=== PATIENT | male | born 1930 | race Caucasian/White ===

== ENCOUNTER 2017-02-05 11:49 | Emergency (ER) | payer MEDICARE ==
--- NOTE | 2017-02-05 14:43 | RAD ---
PELVIC RADIOGRAPH: Date: 02/05/17 PROVIDED CLINICAL HISTORY: Pelvic pain status post injury. FINDINGS: Surgical clips overlie the pelvis. Vascular calcifications are seen. There is no evidence for fractur e or other acute osseous abnormality. If there is persistent clinical concern, conservative managemen t and follow-up imaging are advised. IMPRESSION: As above. POS: [facility]
--- NOTE | 2017-02-05 14:44 | RAD ---
LEFT FEMUR 2 VIEWS: Date: 02/05/17 PROVIDED CLINICAL HISTORY: Left leg pain status post injury. FINDINGS: There is no evidence for fracture or other acute osseous abnormality. If there is persistent clinical concern, conservative management and follow-up imaging are advised. IMPRESSION: As above. POS: [facility]
[2017-02-05 14:55] LABS: #Lymphocytes 0.7 thou/uL (1.20-3.40); #Monocytes 0.8 thou/uL (0.11-0.59); #Neutrophils 5.8 thou/uL (1.40-6.50); %Eosinophils 0.6 % (0.0-10.0); %Lymphocytes 8.9 % (21.0-51.0); %Monocytes 10.7 % (0.0-10.0); Hematocrit 38.3 % (42.0-52.0); Mean Platelet Volume 6.8 fL (7.4-10.4); Red Blood Cell (RBC) Count 3.74 mill/uL (4.70-6.10); White Blood Cell (WBC) Count 7.3 thou/uL (4.8-10.8)
[2017-02-05 15:17] LABS: Bilirubin Negative (Negative); Blood, Urine Large (Negative); Glucose, Urine (Dipstick) Negative (Negative); Ketone, Urine Trace mg/dL (Negative); Nitrite Negative (Negative); Protein, Urine (Dipstick) Negative (Neg-Trace); Urobilinogen 0.2 mg/dL (0.2-1.0)
[2017-02-05 15:18] LABS: ALT (SGPT) 15 U/L (8-55); AST (SGOT) 27 U/L (5-34); Alkaline Phosphatase 132 U/L (40-150); Anion Gap 12 mmol/L (10-20); BUN (Urea Nitrogen) 13 mg/dL (8.4-25.7); Bilirubin, Total 0.9 mg/dL (0.2-1.2); Calc. Creatinine Clearance 0 mL/min (70-130); Calcium 9.6 mg/dL (7.8-10.44); Carbon Dioxide 28 mmol/L (23-31); Chloride 106 mmol/L (98-107); Estimated GFR-MDRD 89; Globulin 2.7 g/dL (2.4-3.5); Protein, Total 6.7 g/dL (5.8-8.1)
[2017-02-05 15:22] LABS: Bacteria/HPF None Seen HPF (None Seen); Hyaline Casts/LPF 0-3 HYALINE CAST LPF (0-3 Hyaline); RBC/HPF GREATER THAN 50-TNTC HPF (0-3); Squamous Epithelial None Seen HPF (0-3); WBC/HPF 0-3 HPF (0-3)
[2017-02-05] MEDS ORDERED: Ibuprofen 200 MG TAB ONE (16:13)
== END 2017-02-05 13:39 | disposition home or self-care (01) ==
LOC: ERS 11:49
DX: S70.12XA Contusion of left thigh, initial encounter (principal); G62.9 Polyneuropathy, unspecified; J44.9 Chronic obstructive pulmonary disease, unspecified; F03.90 Unspecified dementia, unspecified severity, without behavioral disturbance, psychotic disturbance, mood disturbance, and anxiety; Z87.891 Personal history of nicotine dependence; Z79.82 Long term (current) use of aspirin; Z79.01 Long term (current) use of anticoagulants; Z79.899 Other long term (current) drug therapy; X58.XXXA Exposure to other specified factors, initial encounter
CPT/HCPCS: 36415; 72170; 80053; 81003; 81015; 85025; 93005

== ENCOUNTER 2017-02-05 23:10 | Observation (INO) | payer MEDICARE, OTHER ==
--- NOTE | 2017-02-06 01:27 | PDOC.EVN ---
Event Note - Event Note Event Note: [id number] H&P Dictated 1. Agitation 2. Dementia 3. CAD 4. HTN Plan: see orders
[2017-02-06] MEDS ORDERED: Acetaminophen 325 MG TAB PO PRN (01:57)
[2017-02-06] MEDS ORDERED: HYDROcodone/Acetaminophen 5/325 mg Tablet PO PRN (01:57)
[2017-02-06] MEDS ORDERED: Ondansetron HCl/PF 4 MG/2 ML Vial IVP PRN (01:57)
[2017-02-06 02:37] VITALS: BMI 21.2
[2017-02-06 02:56] LABS: #Lymphocytes 0.6 thou/uL (1.20-3.40); #Monocytes 0.8 thou/uL (0.11-0.59); #Neutrophils 6.5 thou/uL (1.40-6.50); %Basophils 0.2 % (0.0-1.0); %Eosinophils 0.4 % (0.0-10.0); %Lymphocytes 7.9 % (21.0-51.0); %Monocytes 10.6 % (0.0-10.0); Mean Platelet Volume 6.9 fL (7.4-10.4); Red Blood Cell (RBC) Count 3.59 mill/uL (4.70-6.10)
[2017-02-06 03:42] LABS: Anion Gap 13 mmol/L (10-20); BUN (Urea Nitrogen) 13 mg/dL (8.4-25.7); Calc. Creatinine Clearance 66 mL/min (70-130); Calcium 9.2 mg/dL (7.8-10.44); Carbon Dioxide 28 mmol/L (23-31); Chloride 106 mmol/L (98-107); Estimated GFR-MDRD 81
--- NOTE | 2017-02-06 08:06 | CT ---
PRELIMINARY REPORT/[facility]/EMERGENCY AFTER HOURS PROCEDURE: EXAM: CT Head Without Intravenous Contrast EXAM DATE/TIME: Exam ordered 02/06/2017 1:17 AM CLINICAL HISTORY: 86 years old, male; Signs and symptoms; Altered mental status/memory loss; Confusion or disorientatio n; Patient HX: M86 presents to ed via ems, called for bedsores on bottom. Per ems, pt was in ed earli er today for bruise on inner l thigh from fall. Pt has a HX of dementia. Pt reports there was a disag reement with him and his and he was sent here. Pt denies pain anywhere. Pt does not remember vis it to ed earlier today. TECHNIQUE: Axial computed tomography images of the head/brain without intravenous contrast. COMPARISON: No relevant prior studies available. FINDINGS: Brain: Volume loss and chronic small vessel ischemic change. No hemorrhage. Ventricles: Unremarkable. No ventriculomegaly. Bones/joints: Unremarkable. No acute fracture. Soft tissues: Unremarkable. Sinuses: Unremarkable as visualized. No acute sinusitis. Mastoid air cells: Unremarkable as visualized. No mastoid effusion. IMPRESSION: No acute brain findings. Thank you for allowing us to participate in the care of your patient. Dictated and Authenticated by: Wenceslao Wiley MD 02/06/2017 1:24 AM Central Time ([place] & [place]) FINAL REPORT BRAIN CT WITHOUT IV CONTRAST: EMERGENT AFTER HOURS TIME: 1:18 a.m. DATE: 02/06/17. Stable atrophy and chronic white matter ischemic changes. No mass or bleed. POS: [facility]
--- NOTE | 2017-02-06 08:50 | HP ---
DATE OF ADMISSION: 02/06/2017 CHIEF COMPLAINT: Agitation. HISTORY OF PRESENT ILLNESS: Patient is 86-year-old male with past medical history of dementia, coronary artery disease, history of lung CA removed, prostate CA, COPD with intermittent oxygen and was brought to the ER because of falls and agitation. Patient had a fall earlier also and patient has some left thigh bruising according to the daughter, patient lives at home with his , but the was admitted in rehab. Following the hip surgery, the patient's started is living with the father at home. According to the daughter, patient is having worsening agitation and confusion last few days, mental status got worse today and the patient brought to the ER. Denies any chest pain. Denies any trouble breathing, denies any dizziness, denies any lightheadedness. PAST MEDICAL HISTORY: As per HPI. PAST SURGICAL HISTORY: CABG. FAMILY HISTORY: Positive for heart problems. SOCIAL HISTORY: No smoking, no alcohol, no drugs. MEDICATIONS: Reviewed. REVIEW OF SYSTEMS: Constitutional: Denies any fever, denies any chills. Eyes : Denies any vision problems. Ears: Denies any hearing loss. Neck: Denies any neck pain. Cardiovascular: Denies any chest pain. Respiratory system: Denies any cough, denies sputum production. Gastrointestinal: Denies nausea, denies vomiting. Integumentary: Positive for left thigh ecchymosis. Cranial nerve system: Denies syncope. Positive for fall. Psychiatric: Positive for agitation. All other review of systems are reviewed and are negative. PHYSICAL EXAMINATION: VITAL SIGNS: Blood pressure is 110/70, afebrile, pulse 85. GENERAL: This patient appears comfortable. HEENT: Pupils are equal, round, and reactive. Anterior nares patent. CARDIOVASCULAR: S1, S2 present. Irregular rate and rhythm. No murmurs, no rubs, no gallops. RESPIRATORY SYSTEM: No wheezing, no rhonchi. Breath sounds bilaterally. GASTROINTESTINAL: Abdomen is soft, nontender, no guarding, no organomegaly, no masses felt. MUSCULOSKELETAL: Left thigh positive for ecchymosis. INTEGUMENTARY: Positive for left thigh ecchymosis. NEUROLOGIC: Cranial nerves intact. Speech clear. Oriented to place and person , but not to time, follows all commands. PSYCHIATRIC: Mood calm at this time. LABORATORY DATA: At the time of H&P performed showed white count of 7.3, hemoglobin 12.7, platelet count is 231. BMP: Sodium 142, potassium 3.7, chloride 106, CO2 is 28, BUN of 13, creatinine 0.82. ASSESSMENT AND PLAN: The patient is an 86-year-old male: 1. History of dementia plus agitation. Plan to monitor the patient closely. Plan to do CT head to evaluate other etiology. We will admit patient to tele overnight. 2. History of hypertension. Continue home blood pressure meds. 3. History of coronary artery disease. Continue aspirin. 4. History of chronic obstructive pulmonary disease. Continue breathing treatments. Monitor oxygen status closely. Case was discussed in detail with the patient and patient's daughter also. LEXIE
[2017-02-06] MEDS ORDERED: Heparin 5,000 UNITS/ML VIAL SC SCH (09:00)
[2017-02-06] MEDS ORDERED: Enoxaparin Sodium 30 MG/0.3 ML SYRINGE SC SCH (09:00)
[2017-02-06] MEDS: Famotidine 20 MG TAB PO SCH ×2 (09:00→20:02)
--- NOTE | 2017-02-06 10:00 | PDOC.PN ---
- Subjective Encounter Start Date: 02/06/17 Encounter Start Time: 09:58 Mr. Farrell was seen today in follow-up for advanced dementia. He was resting comfortably in bed. I spoke to a long time friend of the patient who is very concerned about the patient's living situation. - Objective MAR Reviewed: Yes Vital Signs & Weight: Vital Signs (12 hours) Temp Pulse Resp BP BP Pulse Ox 02/06/17 08:00 98.1 F 63 18 171/84 H 94 L 02/06/17 01:58 98.0 F 63 18 170/74 H 94 L 02/06/17 01:30 98.0 F 63 18 94 L Weight Weight 169 lb 15.622 oz I&O: 02/05/17 02/06/17 02/07/17 06:59 06:59 06:59 Intake Total 0 Balance 0 Result Diagrams: 02/06/17 02:49 02/06/17 02:49 Phys Exam - Physical Examination HEENT: PERRLA Respiratory: no wheezing, no rales, no rhonchi Cardiovascular: RRR, no significant murmur, no rub Gastrointestinal: soft, non-tender, positive bowel sounds Musculoskeletal: no edema Dx/Plan (1) Dementia Code(s): F03.90 - UNSPECIFIED DEMENTIA WITHOUT BEHAVIORAL DISTURBANCE Status: Acute (2) COPD (chronic obstructive pulmonary disease) Status: Chronic (3) CAD (coronary artery disease) Code(s): I25.10 - ATHSCL HEART DISEASE OF [place] CORONARY ARTERY W/O ANG PCTRS Status: Chronic (4) Hypertension Code(s): I10 - ESSENTIAL (PRIMARY) HYPERTENSION Status: Chronic - Plan * Dementia- patient's condition has worsened to the point where he can no longer safely be cared for at home. * COPD- stable * CAD- stable * HTN- blood pressure is slightly elevated- will add Hydralazine as needed * Case Management has been consulted for placement
[2017-02-06] MEDS ORDERED: hydrALAZINE 20 MG/ML VIAL SLOW IVP PRN (10:08)
[2017-02-06] MEDS ORDERED: Lorazepam 2 MG/ML VIAL SLOW IVP PRN (10:09)
[2017-02-06] MEDS: Levothyroxine Sodium 100 MCG TAB PO SCH (20:02)
[2017-02-06] MEDS ORDERED: Atorvastatin Calcium 10 MG TAB PO SCH (21:00)
[2017-02-07] MEDS ORDERED: Ondansetron ODT 4 MG TAB PO PRN (08:58)
[2017-02-07] MEDS ORDERED: Non-Formulary Item 1 EACH (Apixaban [Eliquis] 2.5 MG) PO SCH (09:00)
[2017-02-07] MEDS ORDERED: FLUTAMIDE PO SCH (09:00)
[2017-02-07] MEDS ORDERED: Apixaban 5 MG TAB PO SCH ×2 (09:00)
[2017-02-07] MEDS ORDERED: Venlafaxine HCl XR 150 MG CAP PO SCH (09:00)
[2017-02-07 09:02] VITALS: TEMP 98
[2017-02-07] MEDS: Famotidine 20 MG TAB PO SCH (09:58)
--- NOTE | 2017-02-07 13:38 | PDOC.PN ---
- Subjective Encounter Start Date: 02/07/17 Encounter Start Time: 11:00 Patient seen and examined. No new complaints. No overnight events - Objective MAR Reviewed: Yes Vital Signs & Weight: Vital Signs (12 hours) Temp Pulse Resp BP Pulse Ox 02/07/17 12:29 98 F 63 18 149/89 H 93 L 02/07/17 08:35 98 F 57 L 16 183/71 H 97 02/07/17 08:00 98 F 57 L 16 02/07/17 04:00 98.3 F 51 L 18 168/68 H 96 Weight Admit Weight 169 lb 15.616 oz Weight 169 lb 15.616 oz I&O: 02/06/17 02/07/17 02/08/17 06:59 06:59 06:59 Intake Total 120 Balance 120 Result Diagrams: 02/06/17 02:49 02/06/17 02:49 Phys Exam - Physical Examination Constitutional: NAD HEENT: PERRLA, moist MMs, sclera anicteric Neck: no JVD, supple Respiratory: no wheezing, no rales, no rhonchi Cardiovascular: RRR, no significant murmur, no rub Gastrointestinal: soft, non-tender, no distention, positive bowel sounds Musculoskeletal: no edema, pulses present Neurological: non-focal, normal sensation Psychiatric: normal affect, A&O x 3 Skin: no rash, normal turgor Dx/Plan (1) Dementia Code(s): F03.90 - UNSPECIFIED DEMENTIA WITHOUT BEHAVIORAL DISTURBANCE Status: Acute (2) CAD (coronary artery disease) Code(s): I25.10 - ATHSCL HEART DISEASE OF [place] CORONARY ARTERY W/O ANG PCTRS Status: Chronic (3) COPD (chronic obstructive pulmonary disease) Status: Chronic (4) Hypertension Code(s): I10 - ESSENTIAL (PRIMARY) HYPERTENSION Status: Chronic - Plan cont current plan of care, plan discussed w/ family, PT/OT, pediatric social worker * medically stable * only needs placement * will discharge * medication reviewed as below * symptomatic treatment. Review of Systems - Review of Systems Other: unable to review due to dementia - Medications/Allergies Allergies/Adverse Reactions: Allergies Allergy/AdvReac Type Severity Reaction Status Date / Time No Known Drug Allergies Allergy Verified 02/06/17 03:46 Medications: Current Medications Acetaminophen (Tylenol) 650 mg PO Q4H PRN PRN Reason: Headache/Fever or Pain Hydrocodone Bitart/Acetaminophen ([place] 5/325) 1 tab PO Q4H PRN PRN Reason: Moderate Pain (4-6) Albuterol/Ipratropium (Duoneb) 3 ml IPPB Q4H PRN PRN Reason: Wheezing Apixaban (Eliquis) 5 mg PO BID [facility] Last Admin: 02/07/17 10:01 Dose: 5 mg Arformoterol Tartrate (Brovana) 15 mcg NEB BID-RT [facility] Atorvastatin Calcium (Lipitor) 10 mg PO HS [facility] Last Admin: 02/06/17 20:02 Dose: 10 mg Duloxetine HCl (Cymbalta) 20 mg PO DAILY [facility] Last Admin: 02/07/17 09:58 Dose: 20 mg Famotidine (Pepcid) 20 mg PO BID [facility] Last Admin: 02/07/17 09:58 Dose: 20 mg Hydralazine HCl (Apresoline) 10 mg SLOW IVP Q4H PRN PRN Reason: Systolic BP > 180 Levothyroxine Sodium (Synthroid) 100 mcg PO BID [facility] Last Admin: 02/06/17 20:02 Dose: 100 mcg Levothyroxine Sodium (Synthroid) 25 mcg PO 0600 [facility] Lorazepam (Ativan) 0.5 mg SLOW IVP Q4H PRN PRN Reason: Anxiety/Agitation Ondansetron HCl (Zofran) 4 mg IVP Q6H PRN PRN Reason: Nausea/Vomiting Ondansetron HCl (Zofran Odt) 4 mg PO Q6H PRN PRN Reason: Nausea/Vomiting [Flutamide] 250 Mg (Cap) 0 each PO DAILY [facility] Quetiapine Fumarate (Seroquel) 25 mg PO HS [facility] Sodium Chloride (Flush - Normal Saline) 10 ml IVF PRN PRN PRN Reason: Saline Flush Trazodone HCl (Desyrel) 25 mg PO HS [facility] Venlafaxine HCl (Effexor Xr) 150 mg PO DAILY [facility]
[2017-02-07 14:32] VITALS: BP 172/76
[2017-02-07] MEDS ORDERED: cloNIDine 0.1 MG TAB PO PRN (14:40)
[2017-02-07] MEDS ORDERED: hydrALAZINE 10 MG TAB PO PRN (14:41)
[2017-02-07] MEDS: Levothyroxine Sodium 100 MCG TAB PO SCH (14:51)
--- NOTE | 2017-02-07 15:30 | DIS ---
DATE OF ADMISSION: 02/06/2017 DATE OF DISCHARGE: 02/07/2017 PRIMARY CARE PHYSICIAN: Kori Brasher. DISCHARGE DISPOSITION: [facility] unit. PRIMARY DISCHARGE DIAGNOSIS: Dementia with behavioral disturbance. SECONDARY DISCHARGE DIAGNOSES: Coronary artery disease, chronic obstructive pulmonary disease, and h ypertension. PRIMARY PROCEDURE/OPERATION: None. RADIOLOGICAL INVESTIGATION: CT brain was negative. SIGNIFICANT LABORATORY DATA: Hemoglobin 11.9, MCV 103, platelet 223. WBC 8.0. Sodium 143, potassiu m 3.6, BUN 13, creatinine 0.89, calcium 9.2, ammonia 17. DISCHARGE MEDICATIONS: Eliquis 5 mg p.o. b.i.d., Brovana 15 mcg nebulization b.i.d., Lipitor 40 mg p .o. at bedtime, Cymbalta 20 mg p.o. daily, flutamide 250 mg daily, Synthroid 25 mcg p.o. daily, Zofra n p.r.n., Seroquel 25 mg p.o. at bedtime, trazodone 25 mg p.o. at bedtime, Effexor XR 150 mg p.o. hanna ly, folic acid 1 mg p.o. daily, vitamin B12 1000 mcg p.o. daily, multivitamin 1 tablet p.o. daily. CONTRAINDICATIONS: None. CODE STATUS: FULL CODE. INPATIENT CLIENT APPLICATION SUPPORT SPECIALIST: None. ALLERGIES: No known drug allergy. DISCHARGE PLAN: Post hospital, patient is [facility]. HOSPITAL COURSE: An 86-year-old male who has gradually worsening dementia and behavioral disturbance and that is why family member brought him to emergency room. This patient was observed on medical f jose eduardo, he was not meeting any inpatient criteria. While in hospital, we found that he had macrocytosi s and that is why on discharge we started folic acid, vitamin B12, and multivitamin therapy. Rest of medication was continued while in hospital as per his home medication as well as on discharge. Family member agreed to send him to a prison home with private pay. Necessary arrangements were done with the help of disability case manager. Paperwork for discharge done. Discharge medication reconciliation done. The patient is seen and examined at bedside today. Please see my progress note from today for furthe r details.
[2017-02-07] MEDS ORDERED: Arformoterol 15 MCG/2 ML NEB NEB SCH (18:30)
[2017-02-07] MEDS ORDERED: traZODone HCl 50 MG TAB PO SCH ×2 (21:00)
[2017-02-08] MEDS ORDERED: Levothyroxine Sodium 25 MCG TAB PO SCH (06:00)
== END 2017-02-07 16:00 ==
LOC: ERS 23:10 → T4-B 02-06 00:20
PROVIDERS: ADMIT Internal Medicine; ATTEND Internal Medicine
DX: F03.91 Unspecified dementia, unspecified severity, with behavioral disturbance (principal); R45.1 Restlessness and agitation; I25.10 Atherosclerotic heart disease of native coronary artery without angina pectoris; J44.9 Chronic obstructive pulmonary disease, unspecified; I10 Essential (primary) hypertension; Z95.1 Presence of aortocoronary bypass graft; Z85.118 Personal history of other malignant neoplasm of bronchus and lung; Z85.46 Personal history of malignant neoplasm of prostate; Z87.891 Personal history of nicotine dependence
CPT/HCPCS: 70450; 72170; 73552; 80048; 80053; 82140; 85025 ×2; 93005; 96372; 97116; 97139 ×3; 97535; 99284; 99285; G0378; G8978; G8979; G8987; G8988; 36415; 81003; 81015; J0360; J1644; J1650